=== PATIENT | male | born 1995 | race Caucasian/White ===

== ENCOUNTER 2019-12-22 15:52 | Emergency (ER) | payer OTHER ==
--- NOTE | 2019-12-22 17:07 | UC ---
Telehealth HPI HPI Summary: 24-year-old male is here for telehealth visit with chief complaint of influenza- like illness symptoms. The started about 2 weeks ago. The patient's girlfriend 's mother was positive for Covid. He did travel to [place] and returned here 2- 1/2 weeks ago. Is having headache body aches chills. Did have decreased taste and smell which is improved. Also had mild shortness of breath and a productive cough. Did have some diarrhea. Has taken acetaminophen for the symptoms. Both his father and mother have similar symptoms. Telehealth PMH Previously Healthy: Yes - on Plaquenil for Lyme - Surgical History Surgery Procedure, Year, and Place: Right Hip Arthroscopy, 2015 Infectious Disease History: No - Family History Known Family History: Positive: Non-Contributory - Social History Alcohol Use: None Substance Use Type: Reports: None Smoking Status (MU): Current Some Day Smoker Type: Smokeless Tobacco UC Telehealth ROS All Other Systems Reviewed And Are Negative: Yes Positive: Other - see hpi Positive: Other - see hpi Cardiovascular: Negative Positive: Other - see hpi Positive: Diarrhea Positive: no symptoms reported Positive: Myalgia Skin: Negative Neurological/Mental Status: Negative Positive: Headache Psychological: Normal [facility] Telehealth PE Telehealth Physical Exam: To minimize potential transmission of infectious disease this was a telehealth visit. This does limit the physical examination. Appearance: Positive: Alert and Oriented, No Pain Distress, Ill-Appearing - mild ENT: Negative: Hoarse voice Respiratory/Lung Sounds: Positive: Normal Respiratory Effort Cardiovascular: Positive: Skin Color Reflects Adequate Perfusion Neurological: Positive: Alert, Oriented to Person Place, Time Psychiatric: Positive: Normal Telehealth Course/Dx Assessment/Plan: Influenza is negative. Covid was tested. Patient is to be an self-isolation until released. I discussed with the patient that if he gets short of breath and to get further evaluation. Provider Diagnoses: Influenza-like illness Telehealth Disposition Provider Recommendation for Treatment: [facility] Telehealth Visit: Patient Consented Verbally to Telehealth Visit Telehealth Patient Statement: The patient should understand that they are communicating with their provider via a secure communication platform and that all the same privacy and confidentiality rules apply. They will also be responsible for copayments or coinsurances that apply to any Telehealth visit. Patient Identifiers: 2 Patient Identifiers Verified for Telehealth Visit Telehealth Visit Start Time: 16:50 Telehealth Visit End Time: 17:35 Telehealth Provider Attestation: The above services were appropriate to provide in a Telehealth setting.
[2019-12-22 17:27] LABS: Influenza A Molecular Negative (Negative); Influenza B Molecular Negative (Negative)
--- NOTE | 2019-12-26 08:17 | UC ---
- Progress Note Progress Note: Labs reviewed: Covid 19 undetected RN to inform patient of the lab results. Course/Dx - Diagnoses Provider Diagnoses: Influenza-like illness Discharge ED - Sign-Out/Discharge Documenting (check all that apply): Post-Discharge Follow Up All imaging exams completed and their final reports reviewed: No Studies - Discharge Plan Condition: Stable Disposition: HOME Patient Education Materials: Fever in Adults (ED), Viral Syndrome (ED) Forms: COVID-19 Tested & Isolation Referrals: Shanda Cadena PA [Primary Care Provider] - Additional Instructions: MAINTAIN AT HOME ISOLATION. FOLLOW UP WITH YOUR DOCTOR IF NOT COMPLETELY IMPROVED. GO TO THE EMERGENCY DEPARTMENT IF WORSE; SHORTNESS OF BREATH OR ANY QUESTIONS OR CONCERNS. - Billing Disposition and Condition Condition: STABLE Disposition: Home
== END 2019-12-22 17:45 | disposition home or self-care (01) ==
LOC: UCCORT 15:52
DX: R51 Headache (principal); M79.10 Myalgia, unspecified site; R06.02 Shortness of breath; R05 Cough; R19.7 Diarrhea, unspecified; Z20.828 Contact with and (suspected) exposure to other viral communicable diseases; Z72.0 Tobacco use
CPT/HCPCS: 87635; 99201; G0463; Q3014